=== PATIENT | female | born 1955 | race Caucasian/White ===

== ENCOUNTER 2017-04-29 08:15 | Emergency (ER) | payer OTHER ==
[~2017-04-29] VITALS: Ht 147.3 cm; Wt 62.6 kg
--- NOTE | ~2017-04-29 | CR63 ---
[facility] A Service of [facility] RADIOLOGY TEXT RESULTS PATIENT: MASSIEL KLEIN LOCATION: SED : 53 UNIT #: [id number] AGE: [address]: Lexa Bangura MD SEX: F ORDER DR: [id number] [place] [id number] E MR#: [id number] Acc #: [id number] NAME: MASSIEL KLEIN. : 1955 SEX: F STUDY DATE/TIME: 04/29/2017 9:35 UNIT: SED ROOM: STUDY DESCRIPTION: CR Chest 2 View Attending Physician: Lexa Bangura M.D. Ordering Physician: Lexa Bangura M.D. Primary Care Physician: Baljit Brewster Jr., M.D. MEDICAL IMAGING REPORT This report is preliminary unless electronic signature is present. EXAM Two-view chest 04/29/2017 INDICATIONS 61-year-old female with a cough, congestion, dizziness, shortness of air for a week. COPD. TECHNIQUE Two-view chest performed COMPARISON 06/15/2014 FINDINGS The lungs are hyperinflated. Cardiac silhouette within normal limits. The vascularity is normal. Increased lung markings are present on the right lower lobe. This may reflect atelectasis or faint developing infiltrate given the provided history. Correlate with physical exam findings. There is chronic appearing atelectasis or scarring in the left lower lobe. Old healed granulomatous disease. No pneumothorax or significant effusion. IMPRESSION Chronic lung changes. Increased faint lung markings in the right lung base may reflect atelectasis or faint developing infiltrate. Correlate with exam findings. No pneumothorax or pleural effusion. Dictated by... Oscar Gaspar M.D. THIS IS AN ELECTRONICALLY VERIFIED REPORT Oscar Gaspar M.D. at 04/30/2017 7:37 AM [facility] A Service of [facility] & [facility] RADIOLOGY TEXT RESULTS PATIENT: MASSIEL KLEIN LOCATION: SED : 53 UNIT #: [id number] AGE: [address]: Lexa Bangura MD SEX: F ORDER DR: MICHELE/gena TD: 04/29/2017 18:02 JOB #: [id number] MEDICAL IMAGING REPORT Page 1 of 1
[~2017-04-29 08:15] MED LIST: CLARITIN D PO; SYNTHROID PO
[2017-04-29] MEDS ORDERED: SPIRIVA18 MCG (08:20)
[2017-04-29] MEDS ORDERED: CLARITIN10 M3 DOB (08:20)
[2017-04-29] MEDS ORDERED: ADVAIR 100-501 EAC1 (08:20)
[2017-04-29] MEDS ORDERED: COMBIVENT RESPIM4 GM INH (08:20)
[2017-04-29] MEDS ORDERED: SYNTHROID88 MCG (08:20)
== END 2017-04-29 11:46 | disposition home or self-care (01) ==
LOC: SED 08:15
DX: J18.9 Pneumonia, unspecified organism (principal); H66.91 Otitis media, unspecified, right ear; J44.9 Chronic obstructive pulmonary disease, unspecified; J45.909 Unspecified asthma, uncomplicated; Z79.899 Other long term (current) drug therapy
CPT/HCPCS: 71020; 94640; 99285